=== PATIENT | female | born 1970 | race Caucasian/White ===

== ENCOUNTER → 2023-05-06 | Outpatient (CLI) | payer SELFPAY ==
[2023-05-09 19:06] LABS: G6PD Quant Test 243 (127-427); Red Blood Cell Count Test/G6PD 4.22 x10E6/uL (3.77-5.28)
== END | disposition home or self-care (01) ==
PROVIDERS: PCP Internal Medicine; Referring Provider Nurse Practitioner Family; Visit Provider Nurse Practitioner Family
DX: A69.20 Lyme disease, unspecified (principal)
CPT/HCPCS: 36415; 82955